=== PATIENT | female | born 1985 | race Caucasian/White ===

== ENCOUNTER → 2016-10-25 | Outpatient (CLI) | payer OTHER ==
[~2016-10-25] MED LIST: FOLITAB11 OR; IBUP800T; IBUPPOW25 OR; LISI20TA5 OR; LOTEMAX; MAXA10TA17 OR; METHOTREXATE OR; MOTR200T44 PO; PRED10TA2 OR; PRED5EL OR; PRENTAB40 PO; PRENTAB54 PO; RESTASIS EYE DROPS; ROBA500T; SKEL800T5; SKEL800T5 OR; TRAM50TA2 OR; TYLE325T5 PO; VICO5TAB; VICODIN 5/325 OR; VITAMIN D50000 UNT; ZOLO25TA PO
--- NOTE | 2016-10-25 20:48 | REP ---
Clinical: Pain . Technique: Internal rotation, external rotation, and Y view. Findings: No acute fracture or dislocation. The acromioclavicular and glenohumeral joints are intact. No periarticular calcifications or degenerative changes are appreciated. Sub acromial space is normal. Surrounding soft tissues are unremarkable. Impression: Normal right shoulder radiographs. Signed by Keo Mcgee MD 10/25/2016 05:41 P
== END ==
LOC: M RAD 11:33
PROVIDERS: ATTEND Internal Medicine
DX: M25.511 Pain in right shoulder (principal)

== ENCOUNTER → 2016-12-22 | Outpatient (CLI) | payer OTHER ==
--- NOTE | 2016-12-23 18:39 | REP ---
MRI LEFT SHOULDER WITHOUT CONTRAST: 12/22/2016. Clinical history: Shoulder pain. No prior study available. Technique: Sagittal fat suppressed T2, axial fat suppressed T2 and T2 medic and coronal T1 and fat suppressed T2 sequences provided. Findings: The AC joint does not show any evidence of impingement at the musculotendinous junction and slight spurring superiorly but not inferiorly. There is peripheral acromial spurring. This contribute to some bursal surface fraying of the supraspinatus tendon. There is also some increased signal in the tendon over the greater tuberosity near its insertional footprint but this is not evidence of a full-thickness tear represents significant tendinopathy tendinosis or partial undersurface tear. No full-thickness tear, retraction of the tendon nor atrophy of the supraspinatus muscle subscapularis shows some thickening and increased signal near its insertion on the anterior margin of the humeral head suggesting tendinopathy tendinosis biceps tendon is seated in its groove. Coracoclavicular coracohumeral ligaments are intact. No glenohumeral joint effusion. No fluid in the subcoracoid bursa. The bony coracoid was unremarkable. Visualized labrum intact. The infraspinatus and teres minor tendons and muscles are also intact. The spinoglenoid notch shows no fluid collection or mass. Impression: 1. Tendinopathy/tendinosis of the supraspinatus along its undersurface versus partial tear. I do not see a full-thickness tear, retraction of the tendon nor atrophy of its muscle belly. 2. Small peripheral acromial spur which contributes to some bursal surface fraying but no AC joint spurring inferiorly that would impinge at the musculotendinous junction rotator cuff. 3. Thickening of the subscapularis tendon near its insertion consistent with tendinopathy tendinosis. I do not see full-thickness tear or atrophy of the muscle. 4. Infraspinatus and teres minor tendons and muscles, biceps tendon and the coracoclavicular/coracohumeral ligaments were all intact. Signed by Antony Barrios MD 12/23/2016 06:30 P
--- NOTE | 2016-12-24 12:12 | REP ---
MRI RIGHT SHOULDER WITHOUT CONTRAST: 12/22/2016. Clinical history: Shoulder pain. Comparison: 10/25/2016 x-ray. Technique: Sagittal fat suppressed T2, axial fat suppressed T2 and T2 MEDIC sequences with coronal T1 and fat suppressed T2 sequences provided. Findings: The AC joint shows mild spurring inferiorly indenting musculotendinous junction of the rotator cuff. There is also a small peripheral acromial spur. That contributes to some bursal surface fraying as well as significant tendinopathy and tendinosis of the supraspinatus tendon with thickening and increased signal. I do not see a definite full-thickness tear, subacromial/subdeltoid bursal fluid or retraction of that tendon. No atrophy of the supraspinatus muscle. There is certainly some signal abnormality at the insertional footprint of that tendon as well along the greater tuberosity humeral head. The subscapularis shows some mild thickening and increased signal representing tendinopathy at its insertional. Biceps tendon is seated in its groove. There is no glenohumeral joint effusion. I cannot confirm any definite labral tear. I see no fluid in the subcoracoid bursa. The bony coracoid was grossly intact. No paralabral cyst. The infraspinatus and teres minor muscles and tendons are grossly intact. The spinoglenoid notch shows no fluid collection or mass. Impression: 1. Some mild impingement of the rotator cuff by the AC joint and a peripheral acromial spur contributing to more significant tendinopathy/tendinosis of the supraspinatus without complete or full thickness tear, retraction of the tendon or atrophy of the muscle belly. 2. Biceps tendon intact within its groove. 3. No gross evidence for labral tear with some tendinopathy of the subscapularis muscle intact. 4. The coracoclavicular and coracohumeral ligaments along with the infraspinatus and teres minor tendons and muscles are unremarkable. Signed by Antony Barrios MD 12/24/2016 09:35 A
== END ==
LOC: M RAD 11:16
PROVIDERS: ATTEND Orthopaedic Surgery
DX: M25.512 Pain in left shoulder (principal)

== ENCOUNTER → 2017-03-12 | Outpatient (CLI) | payer OTHER ==
--- NOTE | 2017-03-12 11:37 | PFTRPT ---
Tech: Vee MERCER, WET ROOM SUPERVISOR Age: 31 Sex: Female Race: Height: 63.00 Inches Weight: 182.00 Lbs BSA: 1.86 Diagnosis: M34.9 PULMONARY FUNCTION REPORT ORDERING PROVIDER: Le Carmona PA-C DATE OF SERVICE: 03/12/17 SPIROMETRY: Excellent technical quality. The forced vital capacity is normal. The FEV1 is in proportion. The obstructive index is, therefore, normal. FLOW VOLUME LOOP: The expiratory limb of the flow volume loop is normal. LUNG VOLUMES: The total lung capacity is normal. The residual volume is in proportion. DIFFUSION CAPACITY: The diffusion capacity is normal. HEMOGLOBIN: No hemoglobin is available for correction. AIRWAY MECHANICS: Airways resistance and conductance are normal. IMPRESSION: Normal study. MTDD
--- NOTE | 2017-03-12 20:11 | ECHO ---
DATE OF PROCEDURE: 03/12/2017 REFERRING PHYSICIAN: [place] PATIENT LOCATION: Outpatient. INDICATION: Pulmonary hypertension. HEIGHT: 160 cm WEIGHT: 83 kg DIMENSIONS: IVS: 1.0 LV: 4.6 LVPW: 1.0 LA: 3.0 Aorta: 2.6 FINDINGS: The study is of acceptable technical quality. Left ventricle is of normal size and systolic function with estimated left ventricular ejection fraction (LVEF) 60-65%. Right ventricle does not appear dilated and is normally contractile. Both atria appear normal. Aortic mitral tricuspid and pulmonic valves were all reasonably well seen and appear normal. No pericardial effusion is noted. Inferior vena cava is of normal caliber and appropriately collapses with respiration indicative of normal central venous pressure. Aortic root, aortic arch and abdominal aorta all appear normal. Doppler interrogation of aortic valve reveals no stenosis or insufficiency. There is trace mitral and trace tricuspid insufficiency. Calculated pulmonary artery pressure is in the high 20s corresponding to normal values. Pulmonic valve also exhibits trace insufficiency. Mitral inflow pattern and tissue Doppler imaging of mitral annulus reveal normal diastolic function of left ventricle. CONCLUSIONS: 1. Study is of acceptable technical quality. 2. Normal LV size, systolic and diastolic function. 3. No significant valvular disease. 4. Normal central venous pressure and likely normal pulmonary artery pressure. COMMENT: Subacute bacterial endocarditis (SBE) prophylaxis not recommended.
== END ==
LOC: M CARPUL 10:20
PROVIDERS: ATTEND Physician Assistant Medical
DX: M34.9 Systemic sclerosis, unspecified (principal)

== ENCOUNTER 2017-07-12 07:42 | Day surgery (SDC) | payer OTHER ==
[2017-07-12] MEDS ORDERED: fentaNYL 100 MCG/2 ML INJECTION (J3010) As Ordered (07:47)
[2017-07-12] MEDS: NS 1,000 ML IV (08:17)
[2017-07-12] MEDS ORDERED: PROPOFOL 200 MG/20 ML VIAL As Ordered (08:35)
[2017-07-12] MEDS ORDERED: LIDOCAINE 2% INJ 100 MG/5 ML SDV (FOR ANES.) As Ordered (08:35)
== END 2017-07-12 08:59 | disposition home or self-care (01) ==
LOC: M OPP 07:42
DX: R13.10 Dysphagia, unspecified (principal); R12 Heartburn; K22.8 Other specified diseases of esophagus; M35.00 Sjogren syndrome, unspecified; M34.9 Systemic sclerosis, unspecified; I73.00 Raynaud's syndrome without gangrene; R01.1 Cardiac murmur, unspecified; E04.9 Nontoxic goiter, unspecified; K21.9 Gastro-esophageal reflux disease without esophagitis; Z80.42 Family history of malignant neoplasm of prostate; Z80.3 Family history of malignant neoplasm of breast; F17.210 Nicotine dependence, cigarettes, uncomplicated; Z88.8 Allergy status to other drugs, medicaments and biological substances; Z79.899 Other long term (current) drug therapy
CPT/HCPCS: 43239

== ENCOUNTER → 2019-10-13 | Outpatient (CLI) | payer OTHER ==
[~2019-10-13] MED LIST changes: +HYDR-3713 PO
--- NOTE | 2019-10-14 15:20 | REP ---
Clinical: Upper extremity pain/radiculopathy. Technique: AP, lateral, flexion/extension, swimmer's, bilateral oblique, and open-mouth views of the cervical spine. Findings: Straightening of normal lordosis is nonspecific. Vertebral bodies are intact and there is no evidence for acute fracture / compression injury or subluxation. Alignment is relatively well maintained and normal. Disc spaces are age-appropriate. Open mouth view demonstrates normal signal and C2 articulation and odontoid process. Impression: Age-appropriate cervical spine radiograph series. If the patient remains symptomatic consider MRI for further investigation. Electronically Signed by Keo Mcgee MD 10/14/2019 03:12 P
== END ==
LOC: M RAD 11:09
PROVIDERS: ATTEND Internal Medicine
DX: R20.2 Paresthesia of skin (principal)

== ENCOUNTER → 2019-11-25 | Outpatient (CLI) | payer OTHER ==
--- NOTE | 2019-11-27 00:29 | ECHO ---
DATE OF PROCEDURE: 11/25/2019 REFERRING PHYSICIAN: Dr. Javed Lopez INDICATION: Systemic sclerosis. HEIGHT: 63 inches WEIGHT: 155 pounds 2D MEASUREMENTS: Aortic root: 2.6 cm Left atrium: 3.3 cm Ventricular septum: 0.72 cm Posterior wall: 0.82 cm Left ventricle diastole: 4.4 cm Aortic annulus: 1.7 cm Inferior vena cava: 1.7 cm with normal respiratory variation. DOPPLER MEASUREMENTS: Trace aortic regurgitation, within normal limits. Aortic valve velocity: 116 cm/s Very mild mitral regurgitation. Mitral E velocity: 118 cm/s Mitral A velocity: 46.3 cm/s Mitral deceleration time: 185 ms Very mild tricuspid regurgitation, within normal limits. Estimated right ventricle systolic pressure: 23-28 mmHg assuming a right pressure of 5-10 mmHg. No pulmonic regurgitation. Pulmonary acceleration time: 180 ms (normal). MITRAL ANNULAR TISSUE DOPPLER: E prime lateral: 14.8 cm/s DESCRIPTION: Rhythm was sinus bradycardia and sinus rhythm observed. Image quality was adequate. CONCLUSIONS: 1. Suggestive of normal pulmonary artery systolic pressure and estimated right ventricle systolic pressure. Normal right ventricle size and systolic function. Very mild tricuspid regurgitation, within normal limits. Normal right atrial size. 2. Normal left ventricle internal dimensions and wall thickness. Normal regional left ventricular (LV) wall motion and wall thickening. Normal LV systolic function. Left ventricular ejection fraction (LVEF) 60% by visual estimate. Normal longitudinal peak strain pattern of the left ventricle. Supernormal LV diastolic function. Normal left atrial size. 3. No atrial septal defect detected by color flow Doppler. 4. No pericardial effusion. 5. Normal echocardiogram Doppler.
== END ==
LOC: M CARPUL 10:26
PROVIDERS: ATTEND Internal Medicine Rheumatology
DX: M34.9 Systemic sclerosis, unspecified (principal); R00.1 Bradycardia, unspecified

== ENCOUNTER → 2019-12-17 | Outpatient (REF) | payer OTHER | LOC: M LAB REF 12:16 | PROVIDERS: ATTEND Internal Medicine | DX: M25.50 Pain in unspecified joint (principal) ==

== ENCOUNTER → 2020-02-22 | Outpatient (CLI) | payer OTHER ==
--- NOTE | 2020-03-10 14:20 | PFTRPT ---
Height: 63.00 Inches Weight: 160.00 Lbs BSA: 1.76 Diagnosis: M34.9 DATE OF STUDY: 02/22/2020 ORDERING PHYSICIAN: Aruna Isaacs Pre and post bronchodilator therapy have excellent technical quality. Forced vital capacity is normal. FEV-1 generally proportionate with adequate exchange noted. Flow volume loop was normal. No significant bronchodilator response identified. Total lung capacity normal. Residual volume generally proportionate. Diffusion capacity normal. No hemoglobin available for correction. Airway resistance and conductance are normal. IMPRESSION: Normal study. MTDD
== END ==
LOC: M CARPUL 09:55
PROVIDERS: ATTEND Physician Assistant
DX: M34.9 Systemic sclerosis, unspecified (principal)

== ENCOUNTER → 2021-12-06 | Outpatient (CLI) | payer OTHER | LOC: M CARPUL 13:55 | PROVIDERS: ATTEND Physician Assistant | DX: R06.02 Shortness of breath (principal) ==

== ENCOUNTER → 2022-11-13 | Outpatient (REF) | payer BC | LOC: M SFHCWAGY 13:22 | PROVIDERS: ATTEND Advanced Practice Midwife | DX: Z12.4 Encounter for screening for malignant neoplasm of cervix (principal); R87.610 Atypical squamous cells of undetermined significance on cytologic smear of cervix (ASC-US) | CPT/HCPCS: 87624; G0123 ==

== ENCOUNTER → 2022-12-17 | Outpatient (CLI) | payer BC | LOC: M WUC 11:27 | PROVIDERS: ATTEND Internal Medicine | DX: M54.59 Other low back pain (principal) ==

== ENCOUNTER → 2023-02-21 | Outpatient (REF) | payer BC ==
[2023-02-21 11:27] LABS: APPEARANCE, URINE HAZY (CLEAR); BACTERIA, URINE AUTO NEGATIVE (NEGATIVE); BILIRUBIN, URINE AUTO NEGATIVE (NEGATIVE); BLOOD, URINE BLOOD 1+ (NEGATIVE); COLOR, URINE YELLOW (YELLOW); GLUCOSE, URINE (UA) AUTO NEGATIVE (NEGATIVE); KETONE, URINE AUTO NEGATIVE (NEGATIVE); LEUKOCYTE ESTERASE, URINE AUTO NEGATIVE (NEGATIVE); NITRITE, URINE AUTO NEGATIVE (NEGATIVE); PROTEIN, URINE AUTO NEGATIVE (NEGATIVE); RBC, URINE AUTO 1 /HPF (0-3); SPECIFIC GRAVITY URINE AUTO 1.018 (1.002-1.035); SQUAMOUS EPITHELIAL CELL UR AU 3 /HPF (0-6); UROBILINOGEN, URINE AUTO 0.2 mg/dL (0.0-2.0); WBC, URINE AUTO 3 /HPF (0-3)
== END ==
LOC: M LAB REF 11:07
PROVIDERS: ATTEND Internal Medicine
DX: M54.17 Radiculopathy, lumbosacral region (principal)

== ENCOUNTER → 2023-02-28 | Outpatient (CLI) | payer BC | LOC: M RAD 06:55 | PROVIDERS: ATTEND Internal Medicine | DX: R32 Unspecified urinary incontinence (principal) ==

== ENCOUNTER → 2023-03-16 | Outpatient (CLI) | payer BC | LOC: M RAD 12:45 | PROVIDERS: ATTEND Internal Medicine | DX: M51.26 Other intervertebral disc displacement, lumbar region (principal); M48.061 Spinal stenosis, lumbar region without neurogenic claudication ==

== ENCOUNTER → 2023-04-10 | Outpatient (CLI) | payer BC | LOC: M CARPUL 07:57 | PROVIDERS: ATTEND Internal Medicine Rheumatology | DX: R06.02 Shortness of breath (principal) ==

== ENCOUNTER → 2023-09-19 | Outpatient (CLI) | payer BC | LOC: M PLARAD 10:24 | PROVIDERS: ATTEND Physician Assistant | DX: S46.011A Strain of muscle(s) and tendon(s) of the rotator cuff of right shoulder, initial encounter (principal); M75.22 Bicipital tendinitis, left shoulder; Y93.9 Activity, unspecified; Y92.9 Unspecified place or not applicable ==

== ENCOUNTER → 2023-12-02 | Outpatient (REF) | payer BC ==
[2023-12-04 13:47] LABS: HPV APTIMA Not Detected (Not Detected)
== END ==
LOC: M SFHCWAGY 15:07
PROVIDERS: ATTEND Advanced Practice Midwife
DX: Z12.4 Encounter for screening for malignant neoplasm of cervix (principal)